=== PATIENT | male | born 1970 | race Two or more races ===

== ENCOUNTER 2016-12-10 19:29 | Emergency (ER) | payer MEDICAID, OTHER ==
[~2016-12-10] VITALS: Ht 170.2 cm; Wt 133.8 kg
[2016-12-10] MEDS ORDERED: cloNIDine HCL 0.1 MG TAB ONE (20:01)
[2016-12-10] MEDS ORDERED: cloNIDine HCL 0.1 MG TAB PO ONE ×2 (20:15→23:45)
[2016-12-10 21:04] LABS: Basophils # (auto) 0 uL; Basophils % (auto) 0.5 % (0.0-2.0); Eosinophils # (auto) 0.1 uL; Eosinophils % (auto) 1.6 % (0.0-7.0); Hemoglobin 15.3 g/dL (13.5-17.5); Lymphocytes # (auto) 1.1 uL; Lymphocytes % (auto) 16.1 % (10.0-50.0); Mean Corpuscular Hemoglobin 29.2 pg (28.0-32.0); Mean Corpuscular Hgb Conc. 33.3 g/dL (32.0-36.0); Mean Corpuscular Volume 87.7 fL (80.0-100.0); Mean Platelet Volume 8.2 fL (7.4-10.4); Monocytes # (auto) 0.8 uL; Monocytes % (auto) 12.4 % (0.0-12.0); Neutrophils # (auto) 4.7 uL; Neutrophils % (auto) 69.4 % (37.0-80.0); Platelet Count (auto) 213 10^3/uL (140-450); Red Cell Distribution Width 13.6 % (11.6-16.0); White Blood Cell 6.8 10^3/uL (4.4-10.8)
[2016-12-10 21:16] LABS: Albumin 3.7 g/dL (3.4-5.0); Anion Gap 6 (5-15); Calcium 8.2 mg/dL (8.5-10.1); Carbon Dioxide 28 mmol/L (21-32); Chloride 107 mmol/L (98-107); Glucose 86 mg/dL (74-106); Potassium 3.9 mmol/L (3.5-5.1); Sodium 141 mmol/L (136-145)
[2016-12-10 21:24] LABS: Alkaline Phosphatase 63 U/L (45-117); Aspartate Aminotransferase 66 U/L (15-37); BUN/Creatinine Ratio 11.5; Bilirubin, Total 0.3 mg/dL (0.2-1.0); Blood Urea Nitrogen 14 mg/dL (7-18); GFR African American 83 mL/min; GFR Non-African American 69 mL/min; Total Protein 7.8 g/dL (6.4-8.2)
[2016-12-10 21:46] LABS: INR 1.12 (0.9-1.15); Partial Thromboplastin Time 24.7 sec (22.64-33.71); Prothrombin Time 11.5 sec (9.37-12.3)
[2016-12-11 02:16] VITALS: BP 129/91
== END 2016-12-11 02:30 | disposition home or self-care (01) ==
LOC: ER 19:42
DX: I10 Essential (primary) hypertension (principal); R07.89 Other chest pain; Z91.14 Patient's other noncompliance with medication regimen
CPT/HCPCS: 36415; 71010; 80053; 84484; 85025; 85610; 85730; 93005